=== PATIENT | female | born 1965 | race African-American/Black ===

== ENCOUNTER → 2016-07-23 | Outpatient (CLI) | payer BC, MEDICARE ==
[2015-12-06 15:11] VITALS: BP 149/91
[~2016-07-23] MED LIST: CYCL10TA2 PO; HYDR-2163 PO; HYDR12.58 PO; LISI-338 PO; LISI10TA2 PO
--- NOTE | 2016-07-23 17:25 | CARD ---
APPROVED REPORT EXAM: Two-dimensional and M-mode echocardiogram with Doppler and color Doppler. Other Information Quality : GoodHR: 72bpm Rhythm : NSR INDICATION Murmur RISK FACTORS Hypertension 2D DIMENSIONS RVDd1.7 (2.9-3.5cm)Left Atrium(2D)3.2 (1.6-4.0cm) IVSd0.8 (0.7-1.1cm)Aortic Root(2D)2.5 (2.0-3.7cm) LVDd4.9 (3.9-5.9cm)LVOT Diameter2.0 (1.8-2.4cm) PWd0.8 (0.7-1.1cm)LVDs3.7 (2.5-4.0cm) FS (%) 25.2 %SV57.0 ml LVEF(%)49.6 (>50%) Aortic Valve AoV Peak Michael.132.6cm/sAoV VTI30.0cm AO Peak GR.7.0mmHgLVOT Peak Michael.99.8cm/s AO Mean GR.4mmHgAVA (VMAX)2.26cm2 Mitral Valve MV E Llhytbqh19.5cm/sMV E Peak Gr.5mmHg MV DECEL [id number] A Kargqkyq57.5cm/s MV E Mean Gr.2mmHgE/A Ratio0.9 MV A [id number] Pulmonary Valve PV Peak Tkpsxptx360.1cm/s Tricuspid Valve TR P. Ljypzooy028hm/sTR Peak Gr.25mmHg Pulmonary Vein S1 Jjgwiepf18.1cm/sD2 Rgdaotsr32.0cm/s PVa [id number] LEFT VENTRICLE The left ventricle is normal size. There is normal left ventricular wall thickness. Left ventricle sy stolic function is mildly impaired. The Ejection Fraction is 50%. There is normal LV segmental wall m otion. Transmitral Doppler flow pattern is Grade I-abnormal relaxation pattern. There is no ventricul ar septal defect visualized. RIGHT VENTRICLE The right ventricle is normal size. There is normal right ventricular wall thickness. The right ventr icular systolic function is normal. ATRIA The left atrium size is normal. The right atrium size is normal. The interatrial septum is intact wit h no evidence for an atrial septal defect or patent foramen ovale as noted on 2-D or Doppler imaging. AORTIC VALVE The aortic valve is trileaflet. Doppler and Color Flow revealed mild aortic regurgitation. There is n o significant aortic valvular stenosis. MITRAL VALVE There is no evidence of mitral valve prolapse. There is no mitral valve stenosis. Doppler and Color F low revealed mild mitral regurgitation. TRICUSPID VALVE Doppler and Color Flow revealed mild tricuspid regurgitation. The pulmonary artery systolic pressure is estimated at 30 mmHg. PULMONIC VALVE Doppler and Color Flow revealed mild pulmonic valvular regurgitation. There is no pulmonic valvular s tenosis. GREAT VESSELS The aortic root is normal in size. The ascending aorta is normal in size. The IVC is normal in size a nd collapses >50% with inspiration. PERICARDIAL EFFUSION There is no evidence of significant pericardial effusion. Critical Notification Critical Value: No <Conclusion> Left ventricle systolic function is mildly impaired. The Ejection Fraction is 50%. There is normal LV segmental wall motion. No significant valvular disease.
== END | disposition home or self-care (01) ==
LOC: ECHO 08:52
PROVIDERS: ATTEND Internal Medicine Cardiovascular Disease
DX: R01.1 Cardiac murmur, unspecified (principal); I35.1 Nonrheumatic aortic (valve) insufficiency; I07.1 Rheumatic tricuspid insufficiency; I34.0 Nonrheumatic mitral (valve) insufficiency
CPT/HCPCS: 93306